=== PATIENT | female | born 1980 | race African-American/Black ===

== ENCOUNTER 2016-10-17 14:52 | Emergency (ER) | payer OTHER ==
[~2016-10-17] VITALS: Ht 180.3 cm; Wt 100.0 kg
[~2016-10-17 14:52] MED LIST: ALBU8HFA IH; BECL8.7A6 IH
[2016-10-17 15:30] VITALS: BP 144/63
[2016-10-17] MEDS ORDERED: METHOCARBAMOL 500 MG TABLET PO ONE (15:45)
[2016-10-17] MEDS ORDERED: KETOROLAC TROMETHAMINE 60 MG/2 ML VIAL IM ONE (15:45)
== END 2016-10-17 16:19 | disposition home or self-care (01) ==
LOC: EMS 14:56
DX: S43.402A Unspecified sprain of left shoulder joint, initial encounter (principal); R03.0 Elevated blood-pressure reading, without diagnosis of hypertension; F41.9 Anxiety disorder, unspecified; J45.909 Unspecified asthma, uncomplicated; Z87.891 Personal history of nicotine dependence; Z88.8 Allergy status to other drugs, medicaments and biological substances; X58.XXXA Exposure to other specified factors, initial encounter; Y93.89 Activity, other specified; Y92.89 Other specified places as the place of occurrence of the external cause; Y99.8 Other external cause status
CPT/HCPCS: 96372; 99283; J1885

== ENCOUNTER 2022-04-05 07:56 | Emergency (ER) | payer OTHER ==
[~2022-04-05] VITALS: Ht 180.3 cm; Wt 81.8 kg
[2022-04-05] MEDS ORDERED: PARO-38 PO (08:03)
[2022-04-05] MEDS ORDERED: LISI-893 PO (08:03)
[2022-04-05] MEDS ORDERED: HYDR25TA2 PO (08:03)
[2022-04-05] MEDS ORDERED: IBUP-1492 PO (08:23)
[2022-04-05] MEDS ORDERED: CYCL-448 PO (08:23)
[2022-04-05 08:25] VITALS: BP 155/93
[2022-04-05] MEDS ORDERED: LIDOCAINE 5% TRANSDERMAL PATCH TD ONE (08:30)
[2022-04-05] MEDS ORDERED: KETOROLAC TROMETHAMINE 60 MG/2 ML VIAL IM ONE (08:30)
== END 2022-04-05 08:36 | disposition home or self-care (01) ==
LOC: EMS 08:16
DX: M62.838 Other muscle spasm (principal); G89.29 Other chronic pain; F41.9 Anxiety disorder, unspecified; J45.909 Unspecified asthma, uncomplicated; F32.A Depression, unspecified; I10 Essential (primary) hypertension; E86.0 Dehydration; Z87.891 Personal history of nicotine dependence; Z88.8 Allergy status to other drugs, medicaments and biological substances
CPT/HCPCS: 99283; 96372; J1885

== ENCOUNTER 2022-08-04 07:48 | Emergency (ER) | payer OTHER ==
[~2022-08-04] VITALS: Ht 177.8 cm; Wt 100.0 kg
[~2022-08-04 07:48] MED LIST changes: +ALBU18HF12 IH; -ALBU8HFA IH; +CYCL-448 PO; +HYDR25TA2 PO; +IBUP-1492 PO; +LISI-893 PO; +PARO-38 PO
[2022-08-04 07:52] VITALS: TEMP 98
[2022-08-04] MEDS ORDERED: KETOROLAC TROMETHAMINE 60 MG/2 ML VIAL IM ONE (08:45)
[2022-08-04] MEDS ORDERED: PENICILLIN V POTASSIUM 500 MG TABLET PO ONE (08:45)
[2022-08-04 09:14] VITALS: BP 172/90; PULSE 84; RESP 16
[2022-08-04] MEDS ORDERED: IBUP-1492 PO (09:19)
[2022-08-04] MEDS ORDERED: PERCT PO (09:20)
[2022-08-04] MEDS ORDERED: PENI500T2 PO (09:20)
== END 2022-08-04 09:46 | disposition home or self-care (01) ==
LOC: EMS 07:52
DX: K02.9 Dental caries, unspecified (principal); M25.512 Pain in left shoulder; J45.909 Unspecified asthma, uncomplicated; F41.9 Anxiety disorder, unspecified; F32.A Depression, unspecified; I10 Essential (primary) hypertension; Z87.891 Personal history of nicotine dependence; Z88.8 Allergy status to other drugs, medicaments and biological substances; Z91.013 Allergy to seafood
CPT/HCPCS: 99283; 96372; J1885

== ENCOUNTER 2022-10-04 19:55 | Emergency (ER) | payer OTHER ==
[~2022-10-04] VITALS: Ht 180.3 cm; Wt 82.3 kg
[~2022-10-04 19:55] MED LIST changes: -CYCL-448 PO; -HYDR25TA2 PO; +PENI500T2 PO; +PERCT PO
[2022-10-04 20:12] VITALS: BP 174/96; PULSE 104; RESP 17; TEMP 99.3
== END 2022-10-04 20:40 | disposition left against medical advice (07) ==
LOC: EMS 19:56
DX: M25.532 Pain in left wrist (principal); Z53.21 Procedure and treatment not carried out due to patient leaving prior to being seen by health care provider
CPT/HCPCS: 99281; Z7502

== ENCOUNTER 2023-01-30 07:41 | Emergency (ER) | payer OTHER ==
[~2023-01-30] VITALS: Ht 180.3 cm; Wt 98.0 kg
[2023-01-30 07:48] VITALS: TEMP 98.3
[2023-01-30 08:40] LABS: BASOPHILS % (AUTO) 1.7 % (0.0-2.0); EOSINOPHILS % (AUTO) 2.1 % (1.0-6.0); HEMATOCRIT 38.4 % (36-46); HEMOGLOBIN 12.4 g/dL (12.0-16.0); LYMPHOCYTES # (AUTO) 2.1 K/uL (1.0-4.8); LYMPHOCYTES % (AUTO) 31.6 % (22.0-44.0); MEAN CORPUSCULAR HEMOGLOBIN 26.4 pg (26.0-34.0); MEAN CORPUSCULAR HGB CONC 32.3 G/dL (31.0-37.0); MEAN CORPUSCULAR VOLUME 82 fL (80-100); MONOCYTES # (AUTO) 0.4 K/uL (0.1-1.0); MONOCYTES % (AUTO) 5.4 % (2.0-9.0); NEUTROPHILS % (AUTO) 59.2 % (40.0-70.0); PLATELET COUNT (AUTO) 249 K/uL (150-450); RED CELL DISTRIBUTION WIDTH 14.4 % (11.5-14.5); WHITE BLOOD COUNT (AUTO) 6.8 K/uL (4.5-11.0)
[2023-01-30 08:45] LABS: ANION GAP 12 mmol/L (8-16); CALCIUM, TOTAL 9.5 mg/dL (8.8-10.5); CARBON DIOXIDE 28 mmol/L (22-29); CHLORIDE 98 mmol/L (98-107); CREATININE 1.05 mg/dL (0.60-1.30); GLOMERULAR FILTR. RATE CALC > 60 mL/min (>60); GLUCOSE,RANDOM 399 mg/dL (70-110); POTASSIUM 3.8 mmol/L (3.5-5.1); SODIUM SERUM 138 mmol/L (136-145); UREA NITROGEN, BLOOD 11 mg/dL (7-18)
[2023-01-30 08:54] LABS: APPEARANCE,URINE CLEAR (CLEAR); BILIRUBIN,URINE NEGATIVE (NEGATIVE); COLOR,URINE LIGHT YELLOW (YELLOW); GLUCOSE, URINE (UA) >=1000 mg/dL (NEGATIVE); KETONES,URINE NEGATIVE (NEGATIVE); LEUKOCYTE ESTERASE ,URINE NEGATIVE (NEGATIVE); NITRATE,URINE NEGATIVE (NEGATIVE); OCCULT BLOOD,URINE LARGE (NEGATIVE); PROTEIN,URINE 30-70 mg/dL (NEGATIVE); SPECIFIC GRAVITIY, URINE 1.029 (1.003-1.030); UROBILINOGEN,URINE <=1.0 mg/dL (<=1.0)
[2023-01-30 08:58] LABS: ALANINE AMINOTRANSFERASE 33 U/L (12-78); ALBUMIN 3.9 g/dL (3.4-5.0); ALKALINE PHOSPHATASE 75 U/L (46-116); ASPARTATE AMINOTRANSFERASE 17 U/L (15-37); BILIRUBIN,TOTAL 0.2 mg/dL (0.1-1.0); HCG,QUANTITATIVE < 1 mIU/mL (0-6); LIPASE 43 U/L (16-77); TOTAL PROTEIN, SERUM 8.6 g/dL (6.4-8.2)
[2023-01-30 09:05] LABS: BACTERIA,URINE None Seen /HPF (None Seen); SQUAMOUS EPITHELIAL CELL,UR Few /LPF (None Seen); WBC,URINE None Seen /HPF (0-5)
[2023-01-30] MEDS ORDERED: HYDR25TA PO (09:42)
[2023-01-30] MEDS ORDERED: BECL10.62 PO (09:42)
[2023-01-30] MEDS ORDERED: PARO30TA60 PO (09:42)
[2023-01-30] MEDS ORDERED: LISI10TA24 PO (09:42)
[2023-01-30] MEDS ORDERED: METF-1211 PO (10:51)
[2023-01-30] MEDS ORDERED: [UNRECOGNIZED DRUG - CODE] (10:55)
[2023-01-30] MEDS ORDERED: PENI500T2 PO (11:02)
[2023-01-30] MEDS: INSULIN REGULAR, HUMAN 100 UNITS/ML SQ ONE (11:05)
[2023-01-30] MEDS: PENICILLIN V POTASSIUM 500 MG TABLET PO ONE (11:10)
[2023-01-30] MEDS: KETOROLAC TROMETHAMINE 60 MG/2 ML VIAL IM ONE (11:10)
[2023-01-30 12:00] VITALS: BP 144/86; PULSE 68; RESP 16
== END 2023-01-30 14:14 | disposition home or self-care (01) ==
LOC: EMS 07:48
DX: E11.43 Type 2 diabetes mellitus with diabetic autonomic (poly)neuropathy (principal); K31.84 Gastroparesis; F41.9 Anxiety disorder, unspecified; J45.909 Unspecified asthma, uncomplicated; F32.A Depression, unspecified; I10 Essential (primary) hypertension; G89.29 Other chronic pain; M25.512 Pain in left shoulder; Z87.891 Personal history of nicotine dependence; Z91.013 Allergy to seafood; Z88.8 Allergy status to other drugs, medicaments and biological substances
CPT/HCPCS: 99284; 80053; 81001; 82962; 83036; 83690; 84702; 85025; 36415; 96372; J1815; J1885

== ENCOUNTER 2024-08-13 21:18 | Emergency (ER) | payer OTHER ==
[~2024-08-13] VITALS: Ht 185.4 cm; Wt 98.0 kg
[~2024-08-13 21:18] MED LIST changes: -ALBU18HF12 IH; +BECL10.62 PO; -BECL8.7A6 IH; +HYDR25TA PO; -IBUP-1492 PO; -LISI-893 PO; +LISI10TA24 PO; +METF-1211 PO; -PARO-38 PO; +PARO30TA60 PO; -PERCT PO; +[UNRECOGNIZED DRUG - CODE]
[2024-08-14 00:56] VITALS: TEMP 98.8
[2024-08-14] MEDS: IBUPROFEN 600 MG TABLET PO ONE (01:12)
[2024-08-14 02:11] VITALS: BP 155/84; PULSE 85; RESP 18; O2SAT 99
== END 2024-08-14 02:20 | disposition home or self-care (01) ==
LOC: EMS 21:18
DX: F32.9 Major depressive disorder, single episode, unspecified (principal); F43.10 Post-traumatic stress disorder, unspecified; F20.9 Schizophrenia, unspecified; I10 Essential (primary) hypertension; F41.9 Anxiety disorder, unspecified; J45.909 Unspecified asthma, uncomplicated; Z79.51 Long term (current) use of inhaled steroids; Z91.013 Allergy to seafood; Z79.899 Other long term (current) drug therapy
CPT/HCPCS: 99283